=== PATIENT | female | born 1990 | race African-American/Black ===

== ENCOUNTER 2020-02-03 12:30 | Emergency (ER) | payer OTHER ==
--- NOTE | 2020-02-03 12:36 | PDOC ---
Rapid Medical Evaluation Time Seen by Provider: 02/03/20 12:35 Medical Evaluation: 02/03/20 12:35 I have performed a brief in-person evaluation of this patient. The patient presents with a chief complaint of:cough w/ subj fever, nausea and abd pain. H/o HTN Pertinent physical exam findings: NAD w/ sig elevated BP I have ordered the following:nothing The patient will proceed to the ED for further evaluation. 02/03/20 12:48 Discharge Disposition - Diagnosis Nausea and vomiting Qualifiers: Vomiting type: unspecified Vomiting Intractability: non-intractable Qualified Code(s): R11.2 - Nausea with vomiting, unspecified - Referrals - Patient Instructions - Post Discharge Activity
[2020-02-03 12:52] VITALS: TEMP 98.3
[2020-02-03] MEDS ORDERED: FAMOTIDINE 20 MG/50 ML IVPB 20 MG/50 ML MG IVPB ONE (13:14)
[2020-02-03] MEDS ORDERED: SODIUM CHLORIDE 1,000 ML IV STA (13:14)
[2020-02-03] MEDS ORDERED: ONDANSETRON 4 MG/2 ML VIAL IVPB ONE (13:14)
[2020-02-03] MEDS ORDERED: MAG HYDROX/AL HYDROX/SIMETH 30 ML UNIT-DOSE CUP PO ONE (13:14)
[2020-02-03] MEDS ORDERED: LORazepam 2 MG/ML SDV VIAL IVPUSH ONE (13:15)
[2020-02-03] MEDS ORDERED: LORazepam 2 MG/ML SDV VIAL ONE (13:19)
--- NOTE | 2020-02-03 13:30 | PDOC ---
Attending Attestation - Resident Resident Name: Nemo Khan - ED Attending Attestation I have performed the following: I have examined & evaluated the patient, The case was reviewed & discussed with the resident, I agree w/resident's findings & plan - HPI HPI: 02/03/20 13:25 29 yo fem w/ gastritis/gerd and anxiety/panic here today w/ diffuse abd pain and multiple episodes of nbnb emesis and assoc panic attack. CO chest burning and pressure and sob and panic. 02/03/20 13:26 - Physicial Exam PE: 02/03/20 13:26 PE RRR no murmurs CTA ABd soft ntnd Anxious appearing Hypertensive Equal pulses - Medical Decision Making 02/03/20 13:27 29 yo female w/ panic and gastritis Plan EKG NSR 57 eleno l axis and intervals LVH no acute ischemia 1404 CE Gi cocktail + ativan and reasses bp CXR Xr kub Reasses after meds 02/03/20 14:05 02/03/20 16:16 Labs/Imaging negative Pt bp improved No pittman Still w/ abd discomfort, similar to prior gastritis Abd soft ntnd but pt still wretching will get non con ct and likely dc will give viscous lido as well. Now asking if she can keep wheelchair, well appearing stable for dc ct grossly neg 02/03/20 16:49 Discharge - Discharge Information Clinical Impression/Diagnosis: Nausea and vomiting Qualifiers: Vomiting type: unspecified Vomiting Intractability: non-intractable Qualified Code(s): R11.2 - Nausea with vomiting, unspecified Condition: Good Disposition: HOME - Follow up/Referral Referrals: Jann Villeda DO [Staff Physician] - Vishal Bailey MD [Staff Physician] - Ehsan Tolliver MD [Staff Physician] - Deborah Bran DO [Staff Physician] - Donna Amaro [Primary Care Provider] - Terry Crespo MD [Staff Physician] - - Patient Discharge Instructions Patient Printed Discharge Instructions: DI for Nausea -- Adult, DI for Vomiting -- Adult Additional Instructions: You were seen in the ER for nausea and vomiting. Your blood work is normal. I recommend that you keep yourself well hydrated. Drink plenty of fluids. Do not try to eat solid foods just yet. If you can tolerate liquids then you can start eating soft solids like bread, bananas, rice. If you can tolerate that then you can eat a regular diet. I recommend refraining from smoking marijuana because this can make your symptoms worse. Do not drink alcohol, coffee, eat any fried/fatty/spicy foods. I recommend following up with a GI doctor. Information is provided below., Come back to the ER if you have worsening pain, are unable to eat anything, continuously vomiting. Thank you - Post Discharge Activity
[2020-02-03 13:46] LABS: BASO % 1.3 % (0-2.0); EOS % 0.3 % (0-4.5); HEMATOCRIT 41.1 % (32.4-45.2); HEMOGLOBIN 13.6 GM/dL (10.7-15.3); LYMPH % 16.7 % (8-40); MCH 29.6 pg (25.7-33.7); MCHC 33.1 g/dl (32.0-36.0); MEAN CELL VOLUME 89.6 fl (80-96); MEAN PLT VOLUME 8.6 fl (7.5-11.1); MONO % 4.7 % (3.8-10.2); PLATELET COUNT 96 K/MM3 (134-434); RBC 4.59 M/mm3 (3.60-5.2); RDW 20.4 % (11.6-15.6); WHITE BLOOD COUNT 7.2 K/mm3 (4.0-10.0)
--- NOTE | 2020-02-03 14:23 | PDOC ---
History of Present Illness - General Chief Complaint: Nausea/Vomiting Stated Complaint: COUGH/VOMITING Time Seen by Provider: 02/03/20 12:35 History Source: Patient Exam Limitations: No Limitations - History of Present Illness Initial Comments: 02/03/20 14:20 29y F with PMH of Anxiety presenting to ER for nausea and abdominal discomfort that started today. Pt states she had 10 episodes of nbnb emesis and has diffuse abdominal discomfort. She had similar symptoms before in August 2019. She also feels a discomfort in her chest. She denies diarrhea, constipation, urinary symp toms, dysuria, back pain, sob, fever, chills, cough, sob, headache. She endorses use of alcohol and marijuana but has not used recently. She lives with her boyfriend who does not have fever, cough or sob. Currently menstruating. PMD: PMH: anxiety PSH: none Allergies: nkda Social: smokes cigarettes, marijuana, alcohol use 02/03/20 14:23 Past History - Past Medical History Allergies/Adverse Reactions: Allergies Allergy/AdvReac Type Severity Reaction Status Date / Time No Known Allergies Allergy Verified 02/03/20 13:38 Home Medications: Ambulatory Orders NK [No Known Home Medication] 02/03/20 COPD: No Psychiatric Problems: Yes (aNXIETY) - Psycho Social/Smoking Cessation Hx Smoking History: Current every day smoker Have you smoked in the past 12 months: Yes Information on smoking cessation initiated: No Review of Systems - Review of Systems Constitutional: No: Chills, Fever, Weakness HEENTM: No: Symptoms Reported Respiratory: No: Symptoms reported Cardiac (ROS): Yes: See HPI ABD/GI: Yes: See HPI : No: Symptoms Reported Musculoskeletal: No: Symptoms Reported Integumentary: No: Symptoms Reported Neurological: No: Symptoms reported *Physical Exam - Vital Signs Last Vital Signs Temp Pulse Resp BP Pulse Ox 98.3 F 76 18 188/102 H 99 02/03/20 12:31 02/03/20 12:31 02/03/20 12:31 02/03/20 12:31 02/03/20 12:31 - Physical Exam General Appearance: Yes: Nourished, Appropriately Dressed, Mild Distress HEENT: positive: EOMI, RIO. negative: Scleral Icterus (R), Scleral Icterus (L) Neck: positive: Trachea midline, Supple. negative: Lymphadenopathy (R), Lymphadenopathy (L) Respiratory/Chest: positive: Lungs Clear, Normal Breath Sounds. negative: Crackles, Rales, Rhonchi, Stridor, Wheezing Cardiovascular: positive: Regular Rhythm, Regular Rate, S1, S2. negative: Edema, JVD, Murmur Vascular Pulses: Dorsalis-Pedis (R): 2+, Doralis-Pedis (L): 2+ Gastrointestinal/Abdominal: positive: Normal Bowel Sounds, Tender (epigastric), Soft Musculoskeletal: negative: CVA Tenderness Extremity: positive: Normal Capillary Refill. negative: Swelling, Calf Tenderness, Erythema Integumentary: positive: Normal Color, Dry, Warm Neurologic: positive: skin fitter II-XII NML intact, Fully Oriented, Alert, Normal Mood/Affect, Normal Response, Motor Strength 03/11 ED Treatment Course - LABORATORY CBC & Chemistry Diagram: 02/03/20 13:15 02/03/20 13:15 - ADDITIONAL ORDERS Additional order review: 02/03/20 13:15 RBC 4.59 MCV 89.6 MCHC 33.1 RDW 20.4 H MPV 8.6 Neutrophils % 77.0 Lymphocytes % 16.7 Monocytes % 4.7 Eosinophils % 0.3 Basophils % 1.3 - RADIOLOGY Radiology Studies Ordered: Category Date Time Status CHEST PA & LAT [RAD] Stat Radiology 02/03/20 13:14 Ordered - Medications Given in the ED: ED Medications Discontinued Medications Generic Name Dose Route Start Last Admin Trade Name Freq PRN Reason Stop Dose Admin Al Hydroxide/Mg Hydroxide 30 ml 02/03/20 13:14 02/03/20 13:38 Mylanta Oral Suspension - PO 02/03/20 13:15 30 ml ONCE ONE Administration Sodium Chloride 1,000 mls @ 1,000 mls/hr 02/03/20 13:14 02/03/20 13:38 Normal Saline - IV 02/03/20 14:13 1,000 mls/hr ASDIR STA Administration Famotidine/Sodium Chloride 20 mg in 50 mls @ 100 mls/hr 02/03/20 13:14 02/03/20 13:38 Pepcid 20 Mg Premixed Ivpb - IVPB 02/03/20 13:43 100 mls/hr ONCE ONE Administration Lorazepam 1 mg 02/03/20 13:15 02/03/20 13:38 Ativan Injection - IVPUSH 02/03/20 13:16 1 mg ONCE ONE Administration Ondansetron HCl 4 mg 02/03/20 13:14 02/03/20 13:38 Zofran Injection IVPB 02/03/20 13:15 4 mg ONCE ONE Administration Medical Decision Making - Medical Decision Making 02/03/20 14:22 29y F presenting with n/v and abdominal discomfort vitals; epigastric tenderness. no cva, lower abdominal tenderness. hypertensive. low suspicion for head bleed given abdominal tenderness on palpation. ddx includes gastritis, gastroparesis, HECS, pancreatitis will obtain basic labs including trop, lipase, preg. -fluids zofran, pepcid, maalox viscous lidocaine 02/03/20 14:23 ekg: sinus bradycardia at 57bpm. normal intervals. LVH. no twi, no annie or depressions. 02/03/20 14:40 refractory emesis, given haldol. 02/03/20 16:10 pregn negative, normal lipase. ast 47. electrolytes and cbc wnl. pt stil feeling nauseous, and pt pulled out IV. will give SL zofran, CTAP. 02/03/20 18:17 CTAP with no acute pathology. pt feeling better. will dc home. given gi referral. Discharge - Discharge Information Problems reviewed: Yes Clinical Impression/Diagnosis: Nausea and vomiting Qualifiers: Vomiting type: unspecified Vomiting Intractability: non-intractable Qualified Code(s): R11.2 - Nausea with vomiting, unspecified Condition: Good Disposition: HOME - Admission No - Follow up/Referral Referrals: Donna Amaro [Primary Care Provider] - Jann Villeda DO [Staff Physician] - Deborah Bran DO [Staff Physician] - Ehsan Tolliver MD [Staff Physician] - Vishal Bailey MD [Staff Physician] - Terry Crespo MD [Staff Physician] - - Patient Discharge Instructions Patient Printed Discharge Instructions: DI for Nausea -- Adult, DI for Vomiting -- Adult Additional Instructions: You were seen in the ER for nausea and vomiting. Your blood work is normal. I recommend that you keep yourself well hydrated. Drink plenty of fluids. Do not try to eat solid foods just yet. If you can tolerate liquids then you can start eating soft solids like bread, bananas, rice. If you can tolerate that then you can eat a regular diet. I recommend refraining from smoking marijuana because this can make your symptoms worse. Do not drink alcohol, coffee, eat any fried/fatty/spicy foods. I recommend following up with a GI doctor. Information is provided below., Come back to the ER if you have worsening pain, are unable to eat anything, continuously vomiting. Thank you - Post Discharge Activity
[2020-02-03 14:28] LABS: ALBUMIN 4.1 g/dl (3.4-5.0); ALK PHOS 79 U/L (45-117); ANION GAP 6 MMOL/L (8-16); BILIRUBIN,TOTAL 0.7 mg/dL (0.2-1); BLOOD UREA NITROGEN 7.9 mg/dL (7-18); CALCIUM 8.9 mg/dL (8.5-10.1); CHLORIDE 110 mmol/L (98-107); CO2 22 mmol/L (21-32); CREATININE 0.9 mg/dL (0.55-1.3); GLUCOSE,RANDOM 101 mg/dL (74-106); LIPASE 92 U/L (73-393); POTASSIUM 4.6 mmol/L (3.5-5.1); SGOT/AST 47 U/L (15-37); SGPT/ALT 33 U/L (13-61); SODIUM 138 mmol/L (136-145); TOT PROT 8.4 g/dl (6.4-8.2)
[2020-02-03] MEDS ORDERED: HALOPERIDOL LACTATE 5 MG/ML IM ONE (14:42)
[2020-02-03] MEDS ORDERED: HALOPERIDOL LACTATE 5 MG/ML ONE (14:54)
[2020-02-03] MEDS ORDERED: ONDANSETRON *ODT* 4 MG TABLET SL ONE (16:07)
[2020-02-03 16:09] VITALS: BP 106/56; PULSE 74
[2020-02-03] MEDS ORDERED: ONDANSETRON *ODT* 4 MG TABLET ONE (16:10)
[2020-02-03] MEDS ORDERED: LIDOCAINE VISCOUS 2% ORAL/TOP 20 ML UNIT-DOSE CUP MM ONE (16:17)
[2020-02-03] MEDS ORDERED: LIDOCAINE VISCOUS 2% ORAL/TOP 20 ML UNIT-DOSE CUP ONE (16:21)
--- NOTE | 2020-02-04 14:12 | EKG ---
Test Reason : Blood Pressure : / mmHG Vent. Rate : 057 BPM Atrial Rate : 057 BPM P-R Int : 136 ms QRS Dur : 088 ms QT Int : 450 ms P-R-T Axes : -10 043 039 degrees QTc Int : 438 ms SINUS BRADYCARDIA VOLTAGE CRITERIA FOR LEFT VENTRICULAR HYPERTROPHY ABNORMAL ECG NO PREVIOUS ECGS AVAILABLE Confirmed by MEENU KOVACS MD ([id number]) on 02/04/2020 2:11:46 PM Referred By: Confirmed By:MEENU KOVACS MD
== END 2020-02-03 17:44 | disposition home or self-care (01) ==
LOC: JER 12:30
DX: R11.2 Nausea with vomiting, unspecified (principal)
CPT/HCPCS: 36415; 71046-TC-FY; 74018-TC-FY; 74176-TC; 80053; 83605; 83690; 84484; 84703; 85025; 93005; 93010; 99285-25; J7030; Q0162

== ENCOUNTER 2022-09-14 13:05 | Emergency (ER) | payer OTHER ==
[2022-09-14 13:23] VITALS: BP 175/129; RESP 18; TEMP 99.1; BMI 28.0
[2022-09-14] MEDS ORDERED: ACETAMINOPHEN 500 MG TABLET (FP) PO ONE (14:02)
[2022-09-14] MEDS ORDERED: chlordiazePOXIDE HCL 25 MG CAPSULE PO ONE (14:10)
[2022-09-14] MEDS ORDERED: ACETAMINOPHEN 1000 MG/100 ML BAG IVPB ONE (14:46)
[2022-09-14] MEDS ORDERED: METOCLOPRAMIDE HCL INJECTION 10 MG/2 ML VIAL IVPB ONE (14:46)
[2022-09-14] MEDS ORDERED: chlordiazePOXIDE HCL 25 MG CAPSULE ONE (14:49)
[2022-09-14] MEDS ORDERED: ACETAMINOPHEN INJECTION 100 ML IVPB ONE (14:50)
[2022-09-14] MEDS ORDERED: METOCLOPRAMIDE HCL INJECTION 10 MG/2 ML VIAL ONE (14:50)
[2022-09-14 15:02] VITALS: PULSE 84
[2022-09-14 15:16] LABS: BASO % 1.5 % (0-2.0); HEMATOCRIT 39.5 % (32.4-45.2); LYMPH % 15.3 % (8-40); MCH 29.3 pg (25.7-33.7); MONO % 13.1 % (3.8-10.2); NEUT % 70.1 % (42.8-82.8); PLATELET COUNT 160 10^3/uL (134-434); RBC 4.44 M/mm3 (3.60-5.2)
[2022-09-14 15:26] LABS: ACTIVATED PTT 32.7 SECONDS (25.2-36.5); INR 1.02 (0.83-1.09); PROTHROMBIN TIME (PATIENT) 11.7 SEC (9.7-13.0)
[2022-09-14 15:35] LABS: CHLORIDE 102 mmol/L (98-107); SODIUM 135 mmol/L (136-145)
[2022-09-14 15:36] LABS: CALCIUM 8.8 mg/dL (8.5-10.1)
[2022-09-14 15:37] LABS: BLOOD UREA NITROGEN 12.2 mg/dL (7-18); CO2 27 mmol/L (21-32); GLUCOSE,RANDOM 71 mg/dL (74-106); LIPASE 105 U/L (73-393)
[2022-09-14 15:38] LABS: MAGNESIUM 2.2 mg/dL (1.8-2.4)
[2022-09-14 15:40] LABS: CREATININE 0.8 mg/dL (0.55-1.3); SGOT/AST 59 U/L (15-37); SGPT/ALT 39 U/L (13-61)
[2022-09-14 15:41] LABS: BILIRUBIN,TOTAL 0.4 mg/dL (0.2-1)
[2022-09-14 15:42] LABS: TOT PROT 8.8 g/dl (6.4-8.2)
[2022-09-14 15:43] LABS: ALK PHOS 98 U/L (45-117); ANION GAP 6 MMOL/L (8-16)
[2022-09-14 15:49] LABS: EPI CELLS 10 /uL (0-25.1); HCG,QUALITATIVE URINE Negative; HYALINE CASTS 0 /uL (0-3.1); PH,URINE 7.5 (5.0-8.0); URINE APPEARANCE CLEAR; URINE BACTERIA 473 /uL (0-1359); URINE BILIRUBIN NEGATIVE (NEGATIVE); URINE COLOR YELLOW; URINE GLUCOSE (UA) NEGATIVE (NEGATIVE); URINE KETONE NEGATIVE (NEGATIVE); URINE LEUK ESTERASE TRACE (NEGATIVE); URINE NITRITE NEGATIVE (NEGATIVE); URINE PROTEIN NEGATIVE (NEGATIVE); URINE RBC 11 /uL (0-23.9); URINE WBC 58 /uL (0-25.8)
== END 2022-09-14 17:49 | disposition home or self-care (01) ==
LOC: JER 13:05
PROC: 3E033GC Introduction of Other Therapeutic Substance into Peripheral Vein, Percutaneous Approach (ICD-10-PCS; principal; 2022-09-14)
DX: R51.9 Headache, unspecified (principal); I10 Essential (primary) hypertension
CPT/HCPCS: 0241U-QW; 36415; 70450-TC; 80053; 81003; 83690; 83735; 84484; 84703; 85025; 85610; 85730; 87086; 93005; 93010; 99285-25

== ENCOUNTER 2024-11-20 17:43 | Inpatient (IN) | payer OTHER ==
[2024-11-20] MEDS ORDERED: ACETAMINOPHEN INJECTION 100 ML ONE (18:34)
[2024-11-20 18:48] LABS: VENOUS BASE EXCESS -0.2 mmol/L (-2-2); VENOUS O2 SATURATION 85.4 % (70-80); VENOUS PCO2 40.5 mmHg (38-52); VENOUS PH 7.4 (7.310-7.410)
[2024-11-20] MEDS: SODIUM CHLORIDE 0.9% 500 ML INFUS.BAG IV ONE ×2 (18:52→22:44)
[2024-11-20] MEDS: ACETAMINOPHEN 1000 MG/100 ML BAG IVPB ONE (18:52)
[2024-11-20 18:55] LABS: BASO % 0.5 % (0-2.0); EOS % 0.3 % (0-4.5); HEMOGLOBIN 12.2 GM/dL (10.7-15.3); LYMPH % 8.6 % (8-40); MCH 27.9 pg (25.7-33.7); MEAN CELL VOLUME 87.2 fl (80-96); MEAN PLT VOLUME 8.7 fl (7.5-11.1); MONO % 11.6 % (3.8-10.2); PLATELET COUNT 245 10^3/uL (134-434); RBC 4.36 M/mm3 (3.60-5.2); RDW 16.9 % (11.6-15.6); WHITE BLOOD COUNT 7.3 K/mm3 (4.0-10.0)
[2024-11-20 19:00] LABS: INR 1.16 (0.83-1.09)
[2024-11-20 19:07] LABS: EPI CELLS >36 /uL (0-25.1); HYALINE CASTS 0 /uL (0-3.1); URINE APPEARANCE CLOUDY; URINE BACTERIA 877 /uL (0-1359); URINE BILIRUBIN NEGATIVE (NEGATIVE); URINE COLOR YELLOW; URINE GLUCOSE (UA) NEGATIVE (NEGATIVE); URINE KETONE NEGATIVE (NEGATIVE); URINE LEUK ESTERASE TRACE (NEGATIVE); URINE NITRITE NEGATIVE (NEGATIVE); URINE PROTEIN NEGATIVE (NEGATIVE); URINE WBC 53 /uL (0-25.8)
[2024-11-20 19:18] LABS: ALBUMIN 3.6 g/dl (3.4-5.0); BLOOD UREA NITROGEN 8.1 mg/dL (7-18); CALCIUM 9.1 mg/dL (8.5-10.1)
[2024-11-20 19:22] LABS: CREATININE 0.8 mg/dL (0.55-1.3)
[2024-11-20 19:23] LABS: BILIRUBIN,TOTAL 0.4 mg/dL (0.2-1); TOT PROT 7.6 g/dl (6.4-8.2)
[2024-11-20 20:30] LABS: HIV INTERPRETATION NEGATIVE (NEGATIVE)
[2024-11-20 22:02] LABS: URINE RBC 119.6 /uL (0-23.9)
[2024-11-20 22:04] LABS: HCG,QUALITATIVE URINE Negative
[2024-11-20] MEDS ORDERED: BENZOCAINE/MENTH/CETYLPYRD CL 1 EACH LOZENGE MM ONE (22:36)
[2024-11-20] MEDS: BENZOCAINE/MENTH/CETYLPYRD CL 1 EACH LOZENGE MM PRN (22:44)
[2024-11-21] MEDS ORDERED: ONDANSETRON 4 MG/2 ML VIAL ONE (01:40)
[2024-11-21] MEDS: ONDANSETRON 4 MG/2 ML VIAL IVPUSH ONE (01:49)
[2024-11-21] MEDS ORDERED: ACETAMINOPHEN INJECTION 100 ML ONE ×2 (03:55→12:37)
[2024-11-21] MEDS: ACETAMINOPHEN 1000 MG/100 ML BAG IVPB ONE (04:01)
[2024-11-21] MEDS ORDERED: OSELTAMIVIR PHOSPHATE 75 MG CAPSULE ONE ×2 (04:30→08:44)
[2024-11-21] MEDS: OSELTAMIVIR PHOSPHATE 75 MG CAPSULE PO ONE (04:33)
[2024-11-21] MEDS ORDERED: PATIENT'S OWN MEDICATION (NON-FORMULARY) (Lisinopril/Hydrochlorothiazide [Lisinopril-Hctz PO SCH (06:32)
[2024-11-21] MEDS ORDERED: METOPROLOL TARTRATE 25 MG TABLET (FP) PO SCH ×2 (06:32→10:00)
[2024-11-21] MEDS ORDERED: LISINOPRIL 20 MG TABLET ONE (08:43)
[2024-11-21] MEDS ORDERED: HYDROCHLOROTHIAZIDE 25 MG TABLET (FP) ONE (08:43)
[2024-11-21] MEDS ORDERED: amLODIPine BESYLATE 10 MG TABLET (FP) ONE (08:44)
[2024-11-21] MEDS: LISINOPRIL 20 MG TABLET PO SCH (08:50)
[2024-11-21] MEDS: amLODIPine BESYLATE 10 MG TABLET (FP) PO SCH (08:50)
[2024-11-21] MEDS: METOPROLOL TARTRATE 25 MG TABLET (FP) PO ONE (08:50)
[2024-11-21] MEDS: HYDROCHLOROTHIAZIDE 25 MG TABLET (FP) PO SCH (08:50)
[2024-11-21] MEDS ORDERED: ENOXAPARIN NA (PORCINE) 40 MG/0.4 ML DISP.SYRIN SQ SCH (10:00)
[2024-11-21] MEDS: OSELTAMIVIR PHOSPHATE 75 MG CAPSULE PO SCH (10:06)
[2024-11-21] MEDS ORDERED: ALBUTEROL SO4 2.5/IPRATROPIUM 0.5 INH SOL 3 ML VIAL.NEB. NEB ONE ×2 (10:07→10:28)
[2024-11-21] MEDS ORDERED: ENOXAPARIN NA (PORCINE) 40 MG/0.4 ML DISP.SYRIN SQ ONE (10:08)
[2024-11-21] MEDS: ENOXAPARIN NA (PORCINE) 40 MG/0.4 ML DISP.SYRIN SQ SCH (10:13)
[2024-11-21] MEDS: ALBUTEROL SO4 2.5/IPRATROPIUM 0.5 INH SOL 3 ML VIAL.NEB. NEB SCH (10:13)
[2024-11-21 10:42] LABS: HEMATOCRIT 36.3 % (32.4-45.2); HEMOGLOBIN 11.9 GM/dL (10.7-15.3); MCH 28.7 pg (25.7-33.7); MCHC 32.8 g/dl (32.0-36.0); MEAN CELL VOLUME 87.5 fl (80-96); MEAN PLT VOLUME 8.3 fl (7.5-11.1); PLATELET COUNT 203 10^3/uL (134-434); RBC 4.15 M/mm3 (3.60-5.2); RDW 17.1 % (11.6-15.6); WHITE BLOOD COUNT 4.4 K/mm3 (4.0-10.0)
[2024-11-21 11:10] LABS: POTASSIUM 3.9 mmol/L (3.5-5.1)
[2024-11-21 11:11] LABS: CALCIUM 8.3 mg/dL (8.5-10.1)
[2024-11-21 11:12] LABS: BLOOD UREA NITROGEN 7.7 mg/dL (7-18); MAGNESIUM 2.2 mg/dL (1.8-2.4)
[2024-11-21 11:15] LABS: CREATININE 0.8 mg/dL (0.55-1.3); PHOSPHOROUS 3.1 mg/dL (2.5-4.9)
[2024-11-21] MEDS: ACETAMINOPHEN 1000 MG/100 ML BAG IVPB PRN (12:47)
[2024-11-21 15:01] VITALS: BMI 43.2
[2024-11-21] MEDS: methylPREDNISolone NA SUCC 40 MG/1 ML VIAL IVPUSH SCH (15:06)
[2024-11-21] MEDS: guaiFENesin/CODEINE 5 ML UNIT-DOSE CUPS PO PRN (15:33)
[2024-11-21] MEDS: METOPROLOL TARTRATE 25 MG TABLET (FP) PO SCH (22:11)
[2024-11-22 09:04] LABS: HEMATOCRIT 39.4 % (32.4-45.2); HEMOGLOBIN 12.4 GM/dL (10.7-15.3); MCH 28.2 pg (25.7-33.7); MCHC 31.5 g/dl (32.0-36.0); MEAN CELL VOLUME 89.5 fl (80-96); RDW 17.3 % (11.6-15.6); WHITE BLOOD COUNT 6.1 K/mm3 (4.0-10.0)
[2024-11-22] MEDS: BENZOCAINE/MENTH/CETYLPYRD CL 1 EACH LOZENGE MM SCH (09:25)
[2024-11-22 09:49] LABS: ANISOCYTOSIS 1+; MACROCYTOSIS 1+
[2024-11-22] MEDS: ACETAMINOPHEN 1000 MG/100 ML BAG IVPB ONE (10:02)
[2024-11-22] MEDS: guaiFENesin 600 MG TABLET.ER (FP) PO SCH (10:02)
[2024-11-22 13:31] LABS: POTASSIUM 3.7 mmol/L (3.5-5.1)
[2024-11-22 13:34] LABS: ALBUMIN 3.5 g/dl (3.4-5.0); BLOOD UREA NITROGEN 11.2 mg/dL (7-18); CALCIUM 8.9 mg/dL (8.5-10.1)
[2024-11-22 13:38] LABS: CREATININE 0.8 mg/dL (0.55-1.3)
[2024-11-22 13:39] LABS: BILIRUBIN,TOTAL 0.2 mg/dL (0.2-1); TOT PROT 7.7 g/dl (6.4-8.2)
[2024-11-22] MEDS ORDERED: ACETAMINOPHEN 325 MG TABLET (FP) PO PRN (15:00)
[2024-11-23 15:17] VITALS: BP 121/84; PULSE 84; RESP 18; TEMP 99.1
== END 2024-11-23 19:15 | disposition home or self-care (01) | DRG 720 ==
LOC: JER 17:43 → JERBED 11-21 05:11 → OBSVTOIN 11-21 06:23 → J4S 11-21 14:03
PROVIDERS: ADMIT Internal Medicine; ATTEND Nurse Practitioner Family
DX: A41.89 Other specified sepsis (principal); J10.1 Influenza due to other identified influenza virus with other respiratory manifestations; E66.01 Morbid (severe) obesity due to excess calories; Z68.41 Body mass index [BMI] 40.0-44.9, adult; R51.9 Headache, unspecified; R05.9 Cough, unspecified; I10 Essential (primary) hypertension; R00.0 Tachycardia, unspecified; J98.01 Acute bronchospasm; Z87.820 Personal history of traumatic brain injury; F41.9 Anxiety disorder, unspecified; F17.210 Nicotine dependence, cigarettes, uncomplicated
CPT/HCPCS: 0241U-QW; 36415; 70450-TC; 70487-TC; 71045-TC-FY; 80048; 80053; 81003; 82803; 83605; 83735; 84100; 84484; 84703; 85025; 85027; 85379; 85610; 85730; 86803; 87040; 87389; 90853; 93005; 93010; 93306-TC; 93970-TC; 94010; 94640; 99285-25; G0378; J0131; Q9967